=== PATIENT | male | born 1985 | race Caucasian/White ===

== ENCOUNTER → 2019-06-27 | Outpatient (CLI) | payer OTHER, SELFPAY ==
[2019-06-27 16:44] LABS: ALBUMIN 3.8 GM/DL (3.2-5.2); ALT/SGPT 98 U/L (12-78); BILIRUBIN,DIRECT < 0.1 MG/DL (0.0-0.2); BILIRUBIN,TOTAL 0.3 MG/DL (0.2-1.0); TOTAL PROTEIN 6.5 GM/DL (6.4-8.2)
[2019-06-27 20:13] LABS: HEMATOCRIT 43.6 % (42.0-52.0); HEMOGLOBIN 14.3 g/dl (13.5-17.5); MEAN CORPUSCULAR HGB CONC 32.8 g/dl (32.0-36.5); MEAN CORPUSCULAR VOLUME 91.6 fl (80.0-96.0); PLATELET COUNT, AUTOMATED 250 10^3/uL (150-450); RED BLOOD COUNT 4.76 10^6/uL (4.30-6.10); WHITE BLOOD COUNT 12.4 10^3/uL (4.0-10.0)
[2019-06-28 12:26] LABS: ALBUMIN 4.34 GM/DL (3.29-5.55); ALBUMIN % 66.8 % (55.8-66.1); ALPHA-1-GLOBULIN % 4.2 % (2.9-4.9); ALPHA-1-GLOBULINS 0.27 GM/DL (0.17-0.41); ALPHA-2-GLOBULINS 0.63 GM/DL (0.42-0.99); ALPHA-2-GLOBULINS % 9.7 % (7.1-11.8); BETA-1-GLOBULINS 0.38 GM/DL (0.28-0.60); BETA-1-GLOBULINS % 5.8 % (4.7-7.2); BETA-2-GLOBULINS % 4.6 % (3.2-6.5); GAMMA GLOBULIN % 8.9 % (11.1-18.8); GAMMA GLOBULINS 0.58 GM/DL (0.65-1.58)
[2019-06-29 14:57] LABS: ANTINUCLEAR ANTIBODIES DIRECT Negative (Negative)
== END ==
LOC: M LAB 15:21
PROVIDERS: ATTEND Dermatology
DX: B35.1 Tinea unguium (principal)